=== PATIENT | male | born 1955 | race Caucasian/White ===

== ENCOUNTER → 2021-10-26 | Outpatient (CLI) | payer MEDICARE ==
--- NOTE | 2021-10-26 10:53 | Diagnostic Imaging Report ---
INDICATION: Fall with right thumb pain and left 5th finger pain. TIME OF EXAM: 9:54 AM Multiple views of bilateral fingers were obtained. On the right, there are degenerative changes at the 1st CMC joint. The thumb appears intact without evidence of fracture. 1st metacarpal as well as the proximal distal phalanx of thumb are intact. Left 5th finger shows normal alignment. 5th metacarpal as well as the phalanges of the 3rd digit are normal. No fractures are seen. IMPRESSION: 1. No acute bony abnormalities detected. 2. 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 Dictated by: Dictated on workstation # [id number]
== END ==
LOC: RAD FS 09:43
PROVIDERS: ATTEND Nurse Practitioner
DX: M18.11 Unilateral primary osteoarthritis of first carpometacarpal joint, right hand (principal); M79.645 Pain in left finger(s); W19.XXXA Unspecified fall, initial encounter